=== PATIENT | male | born 1955 | race Caucasian/White ===

== ENCOUNTER 2017-02-03 20:26 | Emergency (ER) | payer BC ==
[2017-02-03] MEDS ORDERED: Tetan/Diph/Pertus SYR(Tdap)* 0.5 ML SYR(BOOSTRIX) use SYR IM ONE (21:32)
--- NOTE | 2017-02-03 21:32 | ED ---
Skin Complaint - HPI Summary HPI Summary: 61M presents with fish hook in right hand. He was able to remove it. He denies any numbness or tingling. His pain is 7/10. He is right handed. his last tetanus is 10 years ago. - History of Current Complaint Chief Complaint: EDGeneral Time Seen by Provider: 02/03/17 20:57 Stated Complaint: FISH HOOK IN RT HAND Pain Intensity: 7 - Additional Pertinent History Primary Care Physician: BOB - Allergy/Home Medications Allergies/Adverse Reactions: Allergies Allergy/AdvReac Type Severity Reaction Status Date / Time No Known Drug Allergy Allergy Unknown Verified 01/27/16 08:36 Reaction Details bee stings Allergy Severe Anaphylatic Uncoded 01/27/16 08:36 Shock dust Allergy Unknown Uncoded 01/27/16 08:36 Reaction Details scallops Allergy Unknown Uncoded 01/27/16 08:36 Reaction Details PMH/Surg Hx/FS Hx/Imm Hx Endocrine/Hematology History: Denies: Hx Diabetes, Hx Thyroid Disease Cardiovascular History: Reports: Hx Hypertension - ON MEDICATION FOR, Other Cardiovascular Problems/Disorders - Hx HTN Denies: Hx Congestive Heart Failure, Hx Deep Vein Thrombosis, Hx Myocardial Infarction, Hx Pacemaker/ICD Respiratory History: Reports: Hx Sleep Apnea Denies: Hx Asthma, Hx Chronic Obstructive Pulmonary Disease (COPD), Hx Lung Cancer, Hx Pneumonia, Hx Pulmonary Embolism GI History: Reports: Hx Gastroesophageal Reflux Disease, Other GI Disorders - diverticulitis Denies: Hx Gall Bladder Disease, Hx Gastrointestinal Bleed, Hx Ulcer, Hx Urosepsis History: Denies: Hx Kidney Stones, Hx Renal Disease Musculoskeletal History: Reports: Other Musculoskeletal History - PINCHED NERVE LEFT SIDE OF NECK CAUSES PAIN- NO PROBLEMS RECENTLY Sensory History: Reports: Hx Contacts or Glasses - GLASSES Denies: Hx Hearing Aid Opthamlomology History: Reports: Hx Contacts or Glasses - GLASSES Neurological History: Reports: Hx Seizures - HX OF PRIOR TO USE OF CPAP MACHINE - NO PROBLEMS SINCE, Other Neuro Impairments/Disorders - Hx sleep apnea, pt reports had sleep study revealing some seizure activity Denies: Hx Dementia, Hx Migraine, Hx Transient Ischemic Attacks (TIA) Psychiatric History: Denies: Hx Anxiety, Hx Depression, Hx Panic Disorder, Hx Schizophrenia, Hx Bipolar Disorder - Surgical History Surgery Procedure, Year, and Place: 1971 RT INDEX FINGER. 2015-[facility] REMOVAL-[facility] [place] Hx Anesthesia Reactions: No Infectious Disease History: Denies: Hx Clostridium Difficile, Hx Hepatitis, Hx Human Immunodeficiency Virus (HIV), Hx of Known/Suspected MRSA, Hx Shingles, Hx Known/Suspected VRE, Hx Known/Suspected VRSA, History Other Infectious Disease, Traveled Outside the [place] in Last 30 Days - Family History Known Family History: Positive: None, Hypertension - Social History Alcohol Use: Daily Alcohol Amount: 3 drinks/day Hx Substance Use: No Substance Use Type: Reports: None Hx Tobacco Use: Yes Smoking Status (MU): Former Smoker Have You Smoked in the Last Year: Yes Review of Systems Negative: Fever Negative: Chest Pain Negative: Shortness Of Breath Positive: Other - fish hook right hand All Other Systems Reviewed And Are Negative: Yes Physical Exam Triage Information Reviewed: Yes Vital Signs On Initial Exam: Initial Vitals Temp Pulse Resp BP Pulse Ox 98.3 F 63 20 162/92 98 02/03/17 20:31 02/03/17 20:31 02/03/17 20:31 02/03/17 20:31 02/03/17 20:31 Vital Signs Reviewed: Yes Appearance: Positive: Well-Appearing Skin: Positive: Warm, Dry, Other - fish hook in right hand posterior near thumb Head/Face: Positive: Normal Head/Face Inspection Eyes: Positive: Normal, Conjunctiva Clear Respiratory/Lung Sounds: Positive: Clear to Auscultation, Breath Sounds Present Cardiovascular: Positive: Normal, RRR Psychiatric: Positive: Normal Procedures - Procedure Summary Procedure Summary: fish hook removal applied lidocaine to area small incision to push barre through and smashed it and was able to pull fish hook through. Diagnostics - Vital Signs Vital Signs Temp Pulse Resp BP Pulse Ox 02/03/17 20:31 98.3 F 63 20 162/92 98 - Laboratory Lab Statement: Any lab studies that have been ordered have been reviewed, and results considered in the medical decision making process. Course/Dx - Course Course Of Treatment: 61M presents with fish hook in right hand. He was able to remove it. He denies any numbness or tingling. His pain is 7/10. He is right handed. his last tetanus is 10 years ago. gave tetanus. poked fish hook through and smashed krystyna and pulled back through. cleaned area. warned of signs of infection to return for. patient understands and agrees with plan. - Differential Diagnoses - Skin Complaint Differential Diagnoses: Foreign Body - Diagnoses Provider Diagnoses: Fish hook injury of right hand Discharge - Discharge Plan Condition: Good Disposition: HOME Patient Education Materials: Soft Tissue Foreign Body (ED) Referrals: Gennaro Bass NP [Primary Care Provider] - Additional Instructions: Wash area with soap and water Return to ED if develop any sign of infection such as fever, spreading redness, or any new or worsening symptoms
[2017-02-03 21:58] VITALS: BP 165/90
== END 2017-02-03 21:57 | disposition home or self-care (01) ==
LOC: ED 20:26
DX: S60.551A Superficial foreign body of right hand, initial encounter (principal); X58.XXXA Exposure to other specified factors, initial encounter; Y93.9 Activity, unspecified; Y92.9 Unspecified place or not applicable; Z23 Encounter for immunization; I10 Essential (primary) hypertension; K21.9 Gastro-esophageal reflux disease without esophagitis; R56.9 Unspecified convulsions; Z87.891 Personal history of nicotine dependence
CPT/HCPCS: 90471; 90715; 99282